=== PATIENT | male | born 1980 | race Caucasian/White ===

== ENCOUNTER 2016-05-26 14:05 | Emergency (ER) | payer SELFPAY ==
[2016-05-26] MEDS ORDERED: IBUPROFEN 800 MG TAB PO STA (14:59)
[2016-05-26] MEDS ORDERED: ACETAMINOPHEN TAB 500 MG TAB PO STA (14:59)
[2016-05-26] MEDS ORDERED: ONDANSETRON 4 MG TAB PO STA (14:59)
--- NOTE | 2016-05-26 15:01 | ED ---
General Adult HPI - General Chief complaint: Fever Stated complaint: fever/chest congestion Time Seen by Provider: 05/26/16 14:37 Source: patient, RN notes reviewed, old records reviewed Mode of arrival: ambulatory Limitations: no limitations - History of Present Illness Initial comments: This is a 36-year-old male here fever nausea vomiting diarrhea fever. Patient has not been feeling well for about 2-3 days. Also putting of cough and congestion. Patient denies modifying factors for her symptoms at home, this fevers been on and off does improve with Motrin. No significant sick contacts no travel history. No significant medical history - Related Data Home Medications Medication Instructions Recorded Confirmed Cpm/PE/Dm/Acetaminophen/Guaifn 2 tab PO Q6H PRN 05/26/16 05/26/16 [Tylenol Cold-Flu Day-Nt Caplet] Previous Rx's Medication Instructions Recorded Acetaminophen Tab [Tylenol Tab] 500 mg PO Q6H PRN #30 tablet 05/26/16 Ibuprofen [Motrin] 800 mg PO Q6HR PRN #30 tab 05/26/16 Ondansetron [Zofran] 4 mg PO Q8HR PRN #30 tab 05/26/16 Allergies Allergy/AdvReac Type Severity Reaction Status Date / Time No Known Allergies Allergy Verified 05/26/16 14:37 Review of Systems ROS Statement: Those systems with pertinent positive or pertinent negative responses have been documented in the HPI. ROS Other: All systems not noted in ROS Statement are negative. Past Medical History Past Medical History: No Reported History History of Any Multi-Drug Resistant Organisms: None Reported Past Surgical History: No Surgical Hx Reported Past Psychological History: No Psychological Hx Reported Smoking Status: Current every day smoker Past Alcohol Use History: Occasional Past Drug Use History: None Reported General Exam Limitations: no limitations General appearance: alert, in no apparent distress Head exam: Present: atraumatic, normocephalic, normal inspection Eye exam: Present: normal appearance, PERRL, EOMI. Absent: scleral icterus, conjunctival injection, periorbital swelling ENT exam: Present: normal exam, mucous membranes moist Neck exam: Present: normal inspection. Absent: tenderness, meningismus, lymphadenopathy Respiratory exam: Present: normal lung sounds bilaterally. Absent: respiratory distress, wheezes, rales, rhonchi, stridor Cardiovascular Exam: Present: regular rate, normal rhythm, normal heart sounds. Absent: systolic murmur, diastolic murmur, rubs, gallop, clicks GI/Abdominal exam: Present: soft, normal bowel sounds. Absent: distended, tenderness, guarding, rebound, rigid Extremities exam: Present: normal inspection, full ROM, normal capillary refill. Absent: tenderness, pedal edema, joint swelling, calf tenderness Back exam: Present: normal inspection Neurological exam: Present: alert, oriented X3, CN II-XII intact Psychiatric exam: Present: normal affect, normal mood Skin exam: Present: warm, dry, intact, normal color. Absent: rash Course Vital Signs 05/26/16 05/26/16 14:24 15:19 Temperature 97.8 F 98.1 F Pulse Rate 75 70 Respiratory 20 16 Rate Blood Pressure 134/83 124/70 O2 Sat by Pulse 97 97 Oximetry Medical Decision Making - Medical Decision Making 36 year for evaluation of fever cough congestion and body aches and fever. Patient will be treated appropriately for viral infection, viral syndrome, patient given synthetic 13 can be discharged home Disposition Clinical Impression: Gastroenteritis, Nausea and vomiting, Diarrhea Disposition: HOME SELF-CARE Condition: Good Instructions: Acute Nausea and Vomiting (ED), Acute Diarrhea (ED) Prescriptions: Acetaminophen Tab [Tylenol Tab] 500 mg PO Q6H PRN #30 tablet PRN Reason: Pain Ibuprofen [Motrin] 800 mg PO Q6HR PRN #30 tab PRN Reason: Pain Ondansetron [Zofran] 4 mg PO Q8HR PRN #30 tab PRN Reason: Nausea Referrals: None,Stated [Primary Care Provider] - 1-2 days
[2016-05-26] MEDS ORDERED: ONDANSETRON ODT 4 MG TAB PO STA (15:09)
[2016-05-26 15:21] VITALS: BP 124/70; PULSE 70; RESP 16; TEMP 98.1
== END 2016-05-26 15:20 | disposition home or self-care (01) ==
LOC: EC 14:05
DX: K52.9 Noninfective gastroenteritis and colitis, unspecified (principal); F17.200 Nicotine dependence, unspecified, uncomplicated
CPT/HCPCS: 99283

== ENCOUNTER → 2017-07-27 | Outpatient (CLI) | payer BC ==
--- NOTE | 2017-07-27 19:23 | MR ---
EXAMINATION TYPE: MR shoulder RT wo con DATE OF EXAM: 07/27/2017 COMPARISON: NONE HISTORY: Rt shoulder pain/weakness x 6 mos, injured while exercising TECHNIQUE: Multiplanar, multisequence imaging of the right shoulder is performed without contrast. FINDINGS: Rotator Cuff: There is increased signal along the undersurface of the insertion of the anterior fiber s of the supraspinatus compatible with partial tear measuring 7 mm. Remaining rotator cuff tendons ap pear intact. There is a small 1.5 cm fluid collection adjacent subscapularis tendon likely related to small amount of fluid within the bursa. Ganglion cyst less likely. It does have a slightly lobulated morphology. Acromioclavicular Joint: There is edema involving the acromion and clavicle with increased signal inv olving the AC joint correlate for strain. Alignment appears normal. This does result in mass effect u viola the supraspinatus tendon and muscle. Glenohumeral Joint: Joint spaces preserved. Inferior glenohumeral and superior glenohumeral ligaments intact. Labrum: The labrum appears grossly intact given limitation of non-arthrogram study. Biceps Tendon: The long head of biceps is in normal location within bicipital groove. Bone marrow signal: Narrow edema is seen involving the clavicle and acromion at the level of the AC j oint. Other: No additional significant abnormality is appreciated. IMPRESSION: 1. There is edema involving the clavicle and acromion at the level of the AC joint with increased sig nal within the joint space correlate for AC joint strain. Mild impingement supraspinatus tendon with partial undersurface tear near the insertion suspected. 2. Small amount of fluid in the subscapularis bursa favored over small ganglion cyst as discussed abo ve.
== END | disposition home or self-care (01) ==
LOC: RADMRIMAIN 16:11
PROVIDERS: ATTEND Orthopaedic Surgery
DX: M25.811 Other specified joint disorders, right shoulder (principal)

== ENCOUNTER → 2019-05-13 | Outpatient (CLI) | payer OTHER ==
[2019-05-13 14:00] VITALS: BP 127/87; PULSE 88; RESP 18
--- NOTE | 2019-05-13 14:45 | P.CONS ---
History of Present Illness - Reason for Consult Consult date: 05/13/19 - Chief Complaint Neck and left arm pain - History of Present Illness This is a 39-year-old gentleman with history of neck and left arm pain which started after a work injury. The pain gets worse with any activity using his left arm. It improves by using heating pad of the neck area. The pain radiates down the left arm to the medial 2 fingers with numbness and tingling starting from the elbow down to the medial 2 fingers. The patient also feels some weakness in his left arm however he denies any bowel or bladder dysfunction. He had cervical spine MRI which showed large left paracentral and foraminal disc protrusion compressing the exiting C6 VII nerve at the C6 7 level and moderate cord compression and canal stenosis. Past Medical History Past Medical History: No Reported History Additional Past Medical History / Comment(s): pain "between shoulder blades" History of Any Multi-Drug Resistant Organisms: None Reported Past Surgical History: No Surgical Hx Reported Past Anesthesia/Blood Transfusion Reactions: No Reported Reaction Past Psychological History: No Psychological Hx Reported Smoking Status: Former smoker Past Alcohol Use History: Occasional Past Drug Use History: Marijuana Additional Drug Use History / Comment(s): occasional use Medications and Allergies Home Medications Medication Instructions Recorded Confirmed Type Cyclobenzaprine [Flexeril] 10 mg PO TID PRN 05/08/19 05/13/19 History Ibuprofen [Motrin Ib] 600 - 800 mg PO Q8H PRN 05/08/19 05/13/19 History Allergies Allergy/AdvReac Type Severity Reaction Status Date / Time No Known Allergies Allergy Verified 05/13/19 13:43 Physical Exam Vitals: Vital Signs Pulse Resp BP Pulse Ox 05/13/19 13:44 88 18 127/87 99 - Constitutional General appearance: obese - EENT Eyes: PERRLA - Neurologic Neuro exam of the upper extremities showed decreased left triceps reflex compared to the right side. Decreased left elbow flexion and extension to 4 out of 5 compared to the right side. He has normal range of motion of the cervical spine. Postoperative tenderness in the left trapezius muscle Neurologic: CNII-XII intact Assessment and Plan Plan: This is a 49-year-old gentleman with history of neck and left arm pain after work injury. This physical exam revealed mildly decreased muscle strength in the left arm before elbow flexion and extension and decreased left triceps reflex. The patient failed to respond to physical therapy. 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 Differential diagnoses includes: Left cervical radiculopathy Left ulnar nerve Cervical spinal Cervical spinal cord compression Left C7 compression The patient states that his numbness starts from the elbow down to the medial 2 fingers and that's why I'm going to send the patient to have an EMG done on the left arm to differentiate between cervical radiculopathy and ulnar nerve compression. The patient also may need to see a neurosurgeon due to the moderate degree of spinal cord compression I also give him restriction note for activities allowed only for fewer than 2 pounds of lifting in the left arm. I thank Dr Guo for the referral.
== END | disposition home or self-care (01) ==
LOC: PNWHC3 13:05
PROVIDERS: ATTEND Anesthesiology
DX: G89.29 Other chronic pain (principal); M54.12 Radiculopathy, cervical region; M48.02 Spinal stenosis, cervical region; G95.29 Other cord compression; Z87.891 Personal history of nicotine dependence; Z79.899 Other long term (current) drug therapy
CPT/HCPCS: 99211

== ENCOUNTER 2020-06-09 11:37 | Emergency (ER) | payer OTHER ==
[2020-06-09 11:46] VITALS: BP 158/110; PULSE 94; RESP 20; TEMP 97.9
--- NOTE | 2020-06-09 11:47 | ED ---
General Adult HPI <Kendrick Rogers - Last Filed: 06/09/20 11:46> <Ramon Oliveira - Last Filed: 06/09/20 12:24> - General Stated complaint: shoulder pain/injury Time Seen by Provider: 06/09/20 11:42 - History of Present Illness Initial comments: 40-year-old male presented from chief complaint of left shoulder, scapular pain. Patient states that he's had this pain for last 3 days it is worse with movement. Patient states that he had no trauma but states he's had issues with this in the past in which she's been told it was a pinched nerve. Patient states is worse with movement of his left arm, deep inspiration no cardiac issues. Patient denies fevers or chills no other complaints. (Kendrick Rogers) I went and evaluated the patient is a 40-year-old male comes in stating that he hurt the area between his neck and shoulder. Patient states he does a lot of pulling at work and is done this in the past. Patient states been trying some warm compresses but has not helped. Patient states movement of the shoulder hurts his trapezius muscle. Patient states his neck is limited motion because it starts to hurt that area as well. Patient denies any numbness weakness. Patient denies any chest pain difficulty breathing shortness of breath. Patient denies any other injuries or problems at this point time. (Ramon Oliveira) - Related Data Home Medications Medication Instructions Recorded Confirmed Cyclobenzaprine [Flexeril] 10 mg PO TID PRN 05/08/19 05/13/19 Ibuprofen [Motrin Ib] 600 - 800 mg PO Q8H PRN 05/08/19 05/13/19 Previous Rx's Medication Instructions Recorded Cyclobenzaprine [Flexeril] 10 mg PO TID #20 tab 06/09/20 Ketorolac [Toradol] 10 mg PO Q6HR #15 tab 06/09/20 Allergies Allergy/AdvReac Type Severity Reaction Status Date / Time No Known Allergies Allergy Verified 06/09/20 11:46 Review of Systems ROS Other: All systems not noted in ROS Statement are negative. <Kendrick Rogers - Last Filed: 06/09/20 11:46> ROS Other: All systems not noted in ROS Statement are negative. <Ramon Oliveira - Last Filed: 06/09/20 12:24> ROS Statement: Those systems with pertinent positive or pertinent negative responses have been documented in the HPI. Past Medical History Past Medical History: No Reported History Additional Past Medical History / Comment(s): pain "between shoulder blades" History of Any Multi-Drug Resistant Organisms: None Reported Past Surgical History: No Surgical Hx Reported Past Anesthesia/Blood Transfusion Reactions: No Reported Reaction Past Psychological History: No Psychological Hx Reported Past Alcohol Use History: Occasional Past Drug Use History: Marijuana Additional Drug Use History / Comment(s): occasional use <Kendrick Rogers - Last Filed: 06/09/20 11:46> General Exam Neck exam: Present: normal inspection, tenderness (Mild left trapezius, parascapular), full ROM Respiratory exam: Present: normal lung sounds bilaterally. Absent: respiratory distress, wheezes, rales, rhonchi, stridor Cardiovascular Exam: Present: regular rate, normal rhythm, normal heart sounds. Absent: systolic murmur, diastolic murmur, rubs, gallop, clicks <Kendrick Rogers - Last Filed: 06/09/20 11:46> <Ramon Oliveira - Last Filed: 06/09/20 12:24> - General Exam Comments Initial Comments: GENERAL Patient is well-developed and well-nourished. Patient is in mild distress. EYES Patient's pupils are equal and round. Extraocular motion is intact SKIN Unremarkable NEURO The patient is alert and oriented 3 PYSCH Patient has normal interpersonal interactions. MUSCULOSKELETAL Patient has reproducible trapezius muscle pain on the left and movement of the neck elicits his pain as well. Patient has no numbness weakness or strength problems of his hands. (Ramon Oliveira) Course Vital Signs 06/09/20 11:44 Temperature 97.9 F Pulse Rate 94 Respiratory 20 Rate Blood Pressure 158/110 O2 Sat by Pulse 99 Oximetry Medical Decision Making <Ramon Oliveira - Last Filed: 06/09/20 12:24> - Medical Decision Making Patient was given a shot of Toradol in the emergency department. (Ramon Oliveira) Disposition <Kendrick Rogers - Last Filed: 06/09/20 11:46> Is patient prescribed a controlled substance at d/c from ED?: No Time of Disposition: 12:24 <Ramon Oliveira - Last Filed: 06/09/20 12:24> Clinical Impression: Trapezius muscle strain Disposition: HOME SELF-CARE Condition: Good Instructions (If sedation given, give patient instructions): Muscle Strain (ED) Prescriptions: Cyclobenzaprine [Flexeril] 10 mg PO TID #20 tab Ketorolac [Toradol] 10 mg PO Q6HR #15 tab Referrals: None,Stated [Primary Care Provider] - 1-2 days
[2020-06-09] MEDS ORDERED: KETOROLAC 15 MG/ML 1 ML VIAL IM STA (12:20)
[2020-06-09] MEDS ORDERED: ORPHENADRINE 30 MG/ML 2 ML VIAL IM STA (12:24)
== END 2020-06-09 12:42 | disposition home or self-care (01) ==
LOC: EC 11:37
DX: S29.012A Strain of muscle and tendon of back wall of thorax, initial encounter (principal); F17.200 Nicotine dependence, unspecified, uncomplicated; X50.0XXA Overexertion from strenuous movement or load, initial encounter; Y99.0 Civilian activity done for income or pay
CPT/HCPCS: 99283; 96372 ×2; J2360; J1885

== ENCOUNTER 2020-06-14 18:40 | Emergency (ER) | payer OTHER ==
[2020-06-14 20:08] VITALS: BP 136/59; PULSE 98; RESP 20; TEMP 98
[2020-06-14] MEDS ORDERED: methylPREDNISolone SOD SUCCI 125 MG/2 ML VIAL IM ONE (21:53)
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
== END 2020-06-14 22:39 | disposition home or self-care (01) ==
LOC: EC 18:40
DX: M54.12 Radiculopathy, cervical region (principal); F17.200 Nicotine dependence, unspecified, uncomplicated; F12.90 Cannabis use, unspecified, uncomplicated
CPT/HCPCS: 99283; 96372; J2930

== ENCOUNTER → 2020-07-10 | Outpatient (CLI) | payer MEDICAID, OTHER ==
--- NOTE | 2020-07-10 10:43 | MR ---
EXAMINATION TYPE: MR cervical spine wo/w con DATE OF EXAM: 07/10/2020 COMPARISON: HISTORY: Mononeuropathy, left shoulder pain, arm weakness, cervicalgia, pinched nerve TECHNIQUE: Multiplanar, multisequence images of the cervical spine were acquired utilizing 10 mL intravenous Alfredo avist gadolinium contrast. Diffusion weighted imaging was performed. C2-C3: No evidence for degenerative disc disease. No disc bulge/herniation or protrusion. No Canal stenosis. Foramina are patent bilaterally. C3-C4: Uncovertebral joint hypertrophy results in foraminal encroachment left greater than right, pos terior disc bulge causes mild anterior mass effect on the thecal sac, mild spinal stenosis. C4-C5: There is some uncovertebral joint hypertrophy, facet arthropathy causing some mild foraminal e ncroachment on the left, posterior disc bulge causes slight anterior mass effect on the thecal sac. S mall central posterior disc herniation is present possibly contacting the anterior cervical cord. Mil d spinal stenosis. C5-C6: There is posterior extension of endplate disc complex, right posterior paracentral disc hernia tion causing anterior mass effect on the thecal sac, there is some deformity of the cervical cord. So me right-sided foraminal encroachment is present greater than left likely due to uncovertebral joint hypertrophy. C6-C7: There is a left posterior paracentral disc herniation which involves the left neural foramen, there is anterolateral mass effect on the thecal sac, aspect of the cervical cord, mild to moderate c entral stenosis. C7-T1: No evidence for degenerative disc disease. No disc bulge/herniation or protrusion. No Canal stenosis. Foramina are patent bilaterally. Cervical segments are intact. There is normal alignment. Cervical spinal cord is of normal signal. Craniovertebral junction relationships are within normal limits. Cervical vertebral bodies show pre served height and alignment. There is mild multilevel spondylosis, endplate discogenic marrow signal change, there is associated loss of disc height signal greatest at C4-5, C5-6, C6-7. Suspect short pe dicles, short AP diameter of the spinal canal. No abnormal enhancement following contrast administrat ion. IMPRESSION: Disc herniation greatest at C6-7, correlate for left C7 radiculopathy, there is multilevel foraminal encroachment, degenerative disc disease.
== END | disposition home or self-care (01) ==
LOC: RADMRIMAIN 09:06
PROVIDERS: ATTEND Family Medicine
DX: M50.223 Other cervical disc displacement at C6-C7 level (principal); M50.30 Other cervical disc degeneration, unspecified cervical region; M99.71 Connective tissue and disc stenosis of intervertebral foramina of cervical region
CPT/HCPCS: 72156; A9585

== ENCOUNTER 2022-09-12 17:00 | Emergency (ER) | payer OTHER ==
--- NOTE | 2022-09-12 17:41 | ED ---
General Adult HPI - General Source: patient, RN notes reviewed Mode of arrival: ambulatory Limitations: no limitations <Yin Sifuentes - Last Filed: 09/12/22 17:40> <Michelle Shah - Last Filed: 09/12/22 23:32> - General Chief complaint: Wound/Laceration Stated complaint: Finger injury Time Seen by Provider: 09/12/22 17:40 - History of Present Illness Initial comments: 42-year-old male presents the emergency department with a chief complaint of finger laceration. (Yin Sifuentes) Patient is a 42-year-old male presents to the emergency department for laceration of left pointer finger. It occurred this evening with a knife which was new. Patient reports minimal pain. Tetanus is up-to-date. (Michelle Shah) - Related Data Home Medications Medication Instructions Recorded Confirmed Cyclobenzaprine [Flexeril] 10 mg PO TID PRN 05/08/19 05/13/19 Ibuprofen [Motrin Ib] 600 - 800 mg PO Q8H PRN 05/08/19 05/13/19 Previous Rx's Medication Instructions Recorded Cyclobenzaprine [Flexeril] 10 mg PO TID #20 tab 06/09/20 Ketorolac [Toradol] 10 mg PO Q6HR #15 tab 06/09/20 predniSONE 50 mg PO DAILY #5 tab 06/14/20 Ibuprofen [Motrin] 800 mg PO Q8HR PRN #30 tab 09/12/22 Allergies Allergy/AdvReac Type Severity Reaction Status Date / Time No Known Allergies Allergy Verified 06/09/20 11:46 Review of Systems ROS Other: All systems not noted in ROS Statement are negative. <Yin Sifuentes - Last Filed: 09/12/22 17:40> ROS Other: All systems not noted in ROS Statement are negative. <Michelle Shah - Last Filed: 09/12/22 23:32> ROS Statement: Those systems with pertinent positive or pertinent negative responses have been documented in the HPI. Past Medical History Past Medical History: No Reported History Additional Past Medical History / Comment(s): pain "between shoulder blades" History of Any Multi-Drug Resistant Organisms: None Reported Past Surgical History: No Surgical Hx Reported Past Anesthesia/Blood Transfusion Reactions: No Reported Reaction Past Psychological History: No Psychological Hx Reported Smoking Status: Current every day smoker Past Alcohol Use History: Occasional Past Drug Use History: Marijuana <Yin Sifuentes - Last Filed: 09/12/22 17:40> General Exam Limitations: no limitations <Yin Sifuentes - Last Filed: 09/12/22 17:40> General appearance: alert, in no apparent distress Respiratory exam: Present: normal lung sounds bilaterally. Absent: respiratory distress, wheezes, rales, rhonchi, stridor Cardiovascular Exam: Present: regular rate, normal rhythm, normal heart sounds. Absent: systolic murmur, diastolic murmur, rubs, gallop, clicks Extremities exam: Present: other (2 cm vertical laceration palmar aspect of left pointer finger near PIP joint no tendons visualized full ROM neurovascularly intact ) <Michelle Shah - Last Filed: 09/12/22 23:32> - General Exam Comments Initial Comments: Visual Physical Exam Vital signs reviewed General: Well-appearing, nontoxic, no acute distress. Head: Normocephalic, atraumatic Eyes: PERRLA, EOMI ENT: Airway patent Chest: Nonlabored breathing Skin: No visual rash, normal skin tone Neuro: Alert and oriented 3 Musculoskeletal: No gross abnormalities (Yin Sifuentes) Course Vital Signs 09/12/22 09/12/22 17:15 19:05 Temperature 98.7 F 98.2 F Pulse Rate 100 92 Respiratory 20 16 Rate Blood Pressure 136/81 145/70 O2 Sat by Pulse 97 95 Oximetry Procedures - Laceration Laceration #1 Indication: laceration Site: other (left pointer finger) Description: linear Anesthetic Used: lidocaine 1% Anesthesia Technique: nerve block Pre-repair: wound explored, irrigated extensively Type of Sutures: nylon Size of Sutures: 4-0 Technique: simple, interrupted Patient Tolerated Procedure: well, no complications <Michelle Shah - Last Filed: 09/12/22 23:32> Medical Decision Making <Michelle Shah - Last Filed: 09/12/22 23:32> - Medical Decision Making Was pt. sent in by a medical professional or institution (, PA, ALUMNI COORDINATOR, urgent care, hospital, or assisted...) When possible be specific @ -No Did you speak to anyone other than the patient for history (EMS, parent, family, police, friend...)? What history was obtained from this source @ -No Did you review nursing and triage notes (agree or disagree)? Why? @ -I reviewed and agree with nursing and triage notes Were old charts reviewed (outside hosp., previous admission, EMS record, old EKG, old radiological studies, urgent care reports/EKG's, assisted records)? Report findings @ -No old charts were reviewed Differential Diagnosis (chest pain, altered mental status, abdominal pain women, abdominal pain men, vaginal bleeding, weakness, fever, dyspnea, syncope, headache, dizziness, GI bleed, back pain, seizure, CVA, palpatations, mental health)? @ -Laceration, abrasion, fracture EKG interpreted by me (3pts min.). @ none X-ray interprted by me (1pt min.). @ -[None done] CT iterpretedby me (1pt min.). @ -[None done] U/S nterprete by me (1pt. min.). @ -[None done] Whattesting ws considered but not performed or refused? (CT, X-rays, U/S, labs)? Why? @ -[None] What medswereconsidered but not given or refused? Why? @ -[None] Did you dscus the management of the patient with other professionals (professionals i.e. , PA, ALUMNI COORDINATOR, lab, RT, psych nurse, director social, architectural sales consultant, teacher, life science technical officer, director case)? Give summary @ -[No] Was smokingcesation discussed for >3mins.? @ -[No] Was critica cre preformed (if so, how long)? @ -[No] Were there ocal determinants of health that impacted care today? How? (Homelessness, low income, unemployed, alcoholism, drug addiction, transportation, low edu. Level, literacy, decrease access to med. care, intermediate, rehab)? @ -[No] Was there d-ecalation of care discussed even if they declined (Discuss DNR or withdrawal of care, Hospice)? DNR status @ -[No] What co-moridties impacted this encounter? (DM, HTN, Smoking, COPD, CAD, Cancer, CVA, ARF, Chemo, Hep., AIDS, mental health diagnosis, sleep apnea, morbid obesity)? @ -[None] Was patiet aditted / discharged? Hospital course, mention meds given and route, prescriptions, significant lab abnormalities, going to OR and other pertinent info. @ -Discharged. Laceration well approximated with sutures tetanus update is not indicated. Undiagnosed new problem with uncertain prognosis? @ -No Drug Therapy requiring intensive monitoring for toxicity (Heparin, Nitro, Insulin, Cardizem)? @ -No Were any procedures done? @ -laceration repair Diagnosis/symptom? @ -laceration Acute, or Chronic, or Acute on Chronic? @ -acute Uncomplicated (without systemic symptoms) or Complicated (systemic symptoms)? @ -uncomplicated Side effects of treatment? @ -No Exacerbation, Progression, or Severe Exacerbation? @ -No Poses a threat to life or bodily function? How? (Chest pain, USA, PA, pneumonia, PE, COPD, DKA, ARF, appy, cholecystitis, CVA, Diverticulitis, Homicidal, Suicidal, threat to staff... and all critical care pts) @ -No Dr. Woo is my attending (Michelle Shha) Disposition <Yin Sifuentes - Last Filed: 09/12/22 17:40> Is patient prescribed a controlled substance at d/c from ED?: No <Michelle Shah - Last Filed: 09/12/22 23:32> Clinical Impression: Laceration Disposition: HOME SELF-CARE Condition: Good Instructions (If sedation given, give patient instructions): Care For Your Stitches (ED), Laceration (ED) Additional Instructions: Leave wound uncovered. Keep wound clean and dry. Wash with a mild soap. Take Tylenol or anti-inflammatories such as Motrin for pain. Follow-up with primary care provider in 1-2 days. Return for suture removal in 7-10 days. Report back to the emergency department if you experience new, concerning, or worsening symptoms. Prescriptions: Ibuprofen [Motrin] 800 mg PO Q8HR PRN #30 tab PRN Reason: Pain Referrals: Armond Mccollum MD [Primary Care Provider] - 1-2 days
[2022-09-12] MEDS ORDERED: LIDOCAINE 1% INJ 10MG/ML (30 ML VIAL-PF) SQ ONE (18:03)
[2022-09-12 19:06] VITALS: BP 145/70; PULSE 92; RESP 16; TEMP 98.2
== END 2022-09-12 19:06 | disposition home or self-care (01) ==
LOC: EC 17:00
DX: S61.211A Laceration without foreign body of left index finger without damage to nail, initial encounter (principal); F17.200 Nicotine dependence, unspecified, uncomplicated; F12.90 Cannabis use, unspecified, uncomplicated; W26.0XXA Contact with knife, initial encounter
CPT/HCPCS: 99283; 12001; J2001